=== PATIENT | female | born 1955 | race Two or more races ===

== ENCOUNTER 2018-04-16 02:50 | Emergency (ER) | payer OTHER ==
--- OUTSIDE RECORDS SUMMARY | 2018-04-16 02:54 | XMS REPORT | Continuity of Care Document ---
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 [address] [place] [address] Effective: Policy Number: Medicaid/Computer [employer] Seciliabet Nitesh 2016 [id number] Expires: 2016 Group Name: 1 1 [address] PayID: [id number] [place] [address] Policy Number: [id number] [facility] Seciliabet Nitesh PayID: [id number] [address] [place] [address] Advance Directives Description No Information Available Problems Description No Information Family History Date Family Member(s) Problem(s) Comments General Diabetes Social History Type Date Description Comments Sex Unknown Marital Status Earlier this year Lives With Sons Occupation Disabled Tobacco Use Start: Unknown Never Smoked Cigarettes ETOH Use Denies alcohol use Recreational Drug Use Never Used Drugs Tobacco Use Start: Unknown Patient has never smoked Smoking Status Reviewed: 09/25/17 Patient has never smoked Allergies, Adverse Reactions, Alerts Date Description Reaction Status Severity Comments 01/26/2017 Penicillin Active 11/03/2016 NKDA Inactive Medications Medication Date Status Form Strength Qnty SIG Indications Ordering Provider Robert 04/06/ Active Misc 120un use 2 times a Serge Lancets 2018 its day as Franky instructed , for blood glucose testing Freestyle Lite 04/06/ Active Strips 200un use to test Serge Test 2018 its blood sugar Franky twice daily , dx code e11.9 Alcohol Swabs 04/06/ Active Pads 70% 100un use for Serge 2018 its fingersticks MD Franky Vitamin B12 12/28/ Active Tablets 3000mcg 90tab 1 tab Serge 2018 Sub s sublingually Heetderks per day , Glucometer 08/04/ Active For testing E11.65 Serge 2018 blood sugar. Franky Alvarado MD controlled diabetes. Please dispense glucometer kit covered by insurance. Ramipril 05/26/ Active Capsules 10mg 30cap take 1 Z00.8 Serge 2017 s capsule by Heeterlin mouth once , daily Zyrtec Allergy 11/03/ Active Tablets 10mg 30tab 1 by mouth R05 Serge 2016 s every day MD Franky Calcium/D 04/14/ Active 60uni Take 1 Tablet Serge 500MG Tab 2016 ts By Mouth Mariuszetderchantelle Twice Daily , Tylenol 04/07/ Active Tablets 325mg 60tab 2 tab by Serge 2015 s mouth three Heetderks times a day , as needed for headache Oyster Shell 03/03/ Active Tablets 500-400mg 60tab 1 tab by Serge Calcium + D3 2016 -Unit s mouth twice a Heetderks day , Pravastatin 03/03/ Active Tablets 20mg 90tab Take One Serge Sodium 2015 s Tablet By Heetderchantelle Mouth AT , Bedtime Pantoprazole 03/03/ Active Tablets DR 40mg 30tab Take 1 Tablet Serge Sodium 2015 s By Mouth Once Heetderchantelle Daily , Torsemide / Active Tablets 10mg 30tab 1 by mouth Serge 0000 s every day as Franky needed , Metformin HCL / Active Tablets 1000mg 180ta take one Serge 0000 bs tablet by Heeterlin mouth twice , daily Ramipril 05/25/ Hx Capsules 10mg 60cap irvin 2 Z00.8 Serge 2018 - s capsules by Franky 01/16/ mouth daily , 2018 for high blood pressure Ramipril 04/07/ Hx Capsules 10mg 60cap Take Two Z00.8 Serge 2016 - s Capsules By Franky 05/25/ Mouth Once , 2017 Daily Ramipril 03/03/ Hx Capsules 10mg 30cap 1 tab by Z00.8 Serge 2016 - s mouth daily Franky 04/07/ , 2015 Tessalon 03/03/ Hx Capsules 100mg 45cap take 1 Serge Perles 2016 - s capsule by Franky 12/28/ mouth 3 times , 2017 per day as needed for cough Oyster Shell / Hx Unknown Calcium 500+D 0000 - 2015 Medications Administered in Office Medication Date Status Form Strength Qnty SIG Indications Ordering Provider Vitamin B-12 Administered Injection Lab and Injection-To 018 [facility] Vitamin B-12 Administered Injection Lab and Injection-To 018 Office [facility] Vitamin B-12 Administered Injection Lab and Injection-To 018 Office [facility] Vitamin B-12 Administered Injection Serge Injection-To erin Ray MD Vitamin B-12 Administered Injection Lab and Injection-To 017 [facility] Vitamin B-12 Administered Injection Serge Injection-To erin Rivas MD Vitamin B-12 Administered Injection Serge Injection-To erin Rivas MD Immunizations CPT Code Status Date Vaccine Lot # [id number] Given 04/05/2018 Influenza Virus Vaccine, Quadrivalent, 3 Yr > [id number] Quad, Preserv Free 57214 Given 01/26/2017 Influenza Virus Vaccine, Quadrivalent, 3 Yr > [id number] Quad, Preserv Free 04820 Given 04/07/2016 Tdap (Adacel) [id number] 31280 Given 03/03/2016 Influenza Virus Vaccine, Quadrivalent, 3 Yr > [id number] Quad, Preserv Free 28640 Given 02/14/2015 Influenza Virus Vaccine, Quadrivalent, 3 Yr > Quad, Preserv Free 33432 Given 01/12/2008 Pneumovax 23 (PPSV23) 65+ years or high risk 2 to 64 year old 44854 Given 01/12/2008 DT (Pediatric) Vital Signs Date Vital Result Comment 04/05/2018 2:36pm Weight 166.00 lb Weight 75.298 kg BP Systolic 124 mmHg BP Diastolic 80 mmHg Heart Rate 76 /min Body Temperature 97.9 F Respiratory Rate 16 /min Height 63.5 inches 5'3.50" BMI (Body Mass Index) 28.9 kg/m2 O2 % BldC Oximetry 96 % 12/28/2017 4:21pm Weight 171.00 lb Weight 77.566 kg BP Systolic 138 mmHg BP Diastolic 85 mmHg Heart Rate 64 /min Body Temperature 98.7 F Respiratory Rate 20 /min 09/25/2017 1:11pm Weight 178.00 lb Weight 80.741 kg BP Systolic 126 mmHg BP Diastolic 78 mmHg Heart Rate 74 /min Body Temperature 97.9 F Respiratory Rate 18 /min O2 % BldC Oximetry 97 % 08/04/2017 11:43am Weight 179.00 lb Weight 81.194 kg BP Systolic 118 mmHg BP Diastolic 80 mmHg Heart Rate 74 /min Body Temperature 97.9 F Respiratory Rate 14 /min O2 % BldC Oximetry 98 % 01/26/2017 3:03pm Weight 175.00 lb Weight 79.380 kg BP Systolic 112 mmHg BP Diastolic 78 mmHg Heart Rate 76 /min Body Temperature 98.6 F Respiratory Rate 16 /min 11/03/2016 2:07pm Weight 172.00 lb Weight 78.019 kg BP Systolic 122 mmHg BP Diastolic 72 mmHg Heart Rate 64 /min Body Temperature 97.5 F Respiratory Rate 16 /min 04/07/2016 9:48am Weight 163.00 lb Weight 73.937 kg BP Systolic 140 mmHg BP Diastolic 68 mmHg Heart Rate 76 /min Height 63.5 inches 5'3.50" BMI (Body Mass Index) 28.4 kg/m2 03/03/2016 3:19pm Weight 161.00 lb Weight 73.030 kg BP Systolic 106 mmHg BP Diastolic 64 mmHg Heart Rate 72 /min Body Temperature 97.9 F Respiratory Rate 20 /min Height 63 inches 5'3" BMI (Body Mass Index) 28.5 kg/m2 Results Test Date Facility Test Result H/L Range Note Laboratory test 04/05/2018 [facility] Hemoglobin A1c 5.5 % 4.0-5.6 1 finding [phone] (Glyco HGB) CBC Auto Diff 04/05/2018 [facility] White Blood 6.8 10^3/uL 3.5-10.8 [phone] Count Red Blood Count 4.38 10^6/uL 4.00-5.40 Hemoglobin 12.9 g/dL 12.0-16.0 Hematocrit 39 % 35-47 Mean Corpuscular Volume 89 fL 80-97 Mean Corpuscular Hemoglobin 29 pg 27-31 Mean Corpuscular HGB Conc 33 g/dL 31-36 Red Cell Distribution Width 15 % 10.5-15 Platelet Count 122 10^3/uL Low 150-450 Mean Platelet Volume 12.0 fL High 7.4-10.4 Abs Neutrophils 3.9 10^3/uL 1.5-7.7 Abs Lymphocytes 2.3 10^3/uL 1.0-4.8 Abs Monocytes 0.5 10^3/uL 0-0.8 Abs Eosinophils 0.1 10^3/uL 0-0.6 Abs Basophils 0 10^3/uL 0-0.2 Abs Nucleated RBC 0 10^3/uL Granulocyte % 56.9 % Lymphocyte % 33.5 % Monocyte % 7.3 % Eosinophil % 1.6 % Basophil % 0.7 % Nucleated Red Blood Cells % 0.1 Comp Metabolic Panel 04/05/2018 [facility] Sodium 144 mmol/L 135-145 [phone] Potassium 4.3 mmol/L 3.5-5.0 Chloride 109 mmol/L 101-111 Co2 Carbon Dioxide 29 mmol/L 22-32 Anion Gap 6 mmol/L 2-11 Glucose 86 mg/dL 70-100 Blood Urea Nitrogen 9 mg/dL 6-24 Creatinine 0.65 mg/dL 0.51-0.95 BUN/Creatinine Ratio 13.8 8-20 Calcium 9.9 mg/dL 8.6-10.3 Total Protein 6.8 g/dL 6.4-8.9 Albumin 4.1 g/dL 3.2-5.2 Globulin 2.7 g/dL 2-4 Albumin/Globulin Ratio 1.5 1-3 Total Bilirubin 0.40 mg/dL 0.2-1.0 Alkaline Phosphatase 82 U/L 34-104 Alt 41 U/L 7-52 Ast 38 U/L 13-39 Egfr Non- 92.4 >60 Egfr 111.8 >60 2 Laboratory test 12/18/2017 [facility] Vitamin B12 412 pg/mL 180-914 3 finding [phone] Liver Function 09/25/2017 [facility] Direct 0.10 mg/ dL 0.03-0.18 Panel [phone] Bilirubin Indirect Bilirubin 0.4 mg/dL 0.3-1.0 Laboratory test 09/25/2017 [facility] Vitamin B12 182 pg/mL 180-914 4 finding [phone] Vitamin D Total 25(Oh) 42.2 ng/mL 20-50 5 TSH (Thyroid Stim Horm) 4.54 mcIU/mL 0.34-5.60 6 Free T4 (Free Thyroxine) 0.87 ng/dL 0.61-1.12 7 T3 Total 1.35 ng/mL 0.87-1.78 8 Thyroperoxidase AB 1.48 IU/mL <9 9 Laboratory test 09/25/2017 [facility] Cytology SEE RESULT 10 finding [phone] BELOW Comp Metabolic 09/25/2017 [facility] Sodium 144 mmol/ L 139-145 Panel [phone] Potassium 4.0 mmol/L 3.5-5.0 Chloride 105 mmol/L 101-111 Co2 Carbon Dioxide 28 mmol/L 22-32 Anion Gap 11 mmol/L 2-11 Glucose 88 mg/dL 70-100 Blood Urea Nitrogen 8 mg/dL 6-24 Creatinine 0.70 mg/dL 0.51-0.95 BUN/Creatinine Ratio 11.4 8-20 Calcium 9.5 mg/dL 8.6-10.3 Total Protein 6.8 g/dL 6.4-8.9 Albumin 3.9 g/dL 3.2-5.2 Globulin 2.9 g/dL 2-4 Albumin/Globulin Ratio 1.3 1-3 Total Bilirubin 0.50 mg/dL 0.2-1.0 Alkaline Phosphatase 96 U/L 34-104 Alt 74 U/L High 7-52 Ast 64 U/L High 13-39 Egfr Non- 85.1 >60 Egfr 109.4 >60 11 CBC Auto Diff 09/25/2017 [facility] White Blood 6.2 10^3/uL 3.5-10.8 [phone] Count Red Blood Count 4.42 10^6/uL 4.0-5.4 Hemoglobin 12.8 g/dL 12.0-16.0 Hematocrit 39 % 35-47 Mean Corpuscular Volume 88 fL 80-97 Mean Corpuscular Hemoglobin 29 pg 27-31 Mean Corpuscular HGB Conc 33 g/dL 31-36 Red Cell Distribution Width 16 % High 10.5-15 Platelet Count 119 10^3/uL Low 150-450 Mean Platelet Volume 12.1 um3 High 7.4-10.4 Abs Neutrophils 3.6 10^3/uL 1.5-7.7 Abs Lymphocytes 2.0 10^3/uL 1.0-4.8 Abs Monocytes 0.4 10^3/uL 0-0.8 Abs Eosinophils 0.2 10^3/uL 0-0.6 Abs Basophils 0 10^3/uL 0-0.2 Abs Nucleated RBC 0 10^3/uL Granulocyte % 58.1 % 38-83 Lymphocyte % 31.2 % 25-47 Monocyte % 7.1 % High 0-7 Eosinophil % 2.8 % 0-6 Basophil % 0.8 % 0-2 Nucleated Red Blood Cells % 0 Urine Microalbumin 08/04/2017 [facility] Ur Microalbumin 20.4 mg/L Random [phone] (mg/L) Urine Creatinine 102.08 mg/dL Urine Microalbumin/Creatinine 19.9 ug/mg <31 CBC Auto Diff 08/04/2017 [facility] White Blood 6.3 10^3/uL 3.5-10.8 [phone] Count Red Blood Count 4.46 10^6/uL 4.0-5.4 Hemoglobin 12.9 g/dL 12.0-16.0 Hematocrit 40 % 35-47 Mean Corpuscular Volume 90 fL 80-97 Mean Corpuscular Hemoglobin 29 pg 27-31 Mean Corpuscular HGB Conc 32 g/dL 31-36 Red Cell Distribution Width 15 % 10.5-15 Platelet Count 107 10^3/uL Low 150-450 Mean Platelet Volume 12.2 um3 High 7.4-10.4 Abs Neutrophils 3.4 10^3/uL 1.5-7.7 Abs Lymphocytes 2.2 10^3/uL 1.0-4.8 Abs Monocytes 0.5 10^3/uL 0-0.8 Abs Eosinophils 0.1 10^3/uL 0-0.6 Abs Basophils 0 10^3/uL 0-0.2 Abs Nucleated RBC 0 10^3/uL Granulocyte % 54.4 % 38-83 Lymphocyte % 35.3 % 25-47 Monocyte % 7.6 % High 0-7 Eosinophil % 2.0 % 0-6 Basophil % 0.7 % 0-2 Nucleated Red Blood Cells % 0.1 Comp Metabolic Panel 08/04/2017 [facility] Sodium 142 mmol/L 139-145 [phone] Potassium 4.0 mmol/L 3.5-5.0 Chloride 103 mmol/L 101-111 Co2 Carbon Dioxide 28 mmol/L 22-32 Anion Gap 11 mmol/L 2-11 Glucose 78 mg/dL 70-100 Blood Urea Nitrogen 12 mg/dL 6-24 Creatinine 0.69 mg/dL 0.51-0.95 BUN/Creatinine Ratio 17.4 8-20 Calcium 9.6 mg/dL 8.6-10.3 Total Protein 6.8 g/dL 6.4-8.9 Albumin 3.9 g/dL 3.2-5.2 Globulin 2.9 g/dL 2-4 Albumin/Globulin Ratio 1.3 1-3 Total Bilirubin 0.40 mg/dL 0.2-1.0 Alkaline Phosphatase 92 U/L 34-104 Alt 75 U/L High 7-52 Ast 92 U/L High 13-39 Egfr Non- 86.5 >60 Egfr 111.2 >60 12 Laboratory test 08/04/2017 [facility] Hemoglobin A1c 5.8 % High 4.0-5.6 13 finding [phone] (Glyco HGB) Lipid Profile 08/04/2017 [facility] Triglycerides 133 14 (Trig/Chol/HDL) [phone] mg/dL Cholesterol 142 mg/dL 15 HDL Cholesterol 36.6 mg/dL 16 LDL Cholesterol 79 mg/dL 17 Laboratory test 11/03/2016 [facility] Hemoglobin A1c 5.8 % Less than 18 finding [phone] (Glyco HGB) 6.0 Hepatitis C Antibody Nonreactive Nonreactive 19 Lipid Profile 11/03/2016 [facility] Triglycerides 143 mg/dL 20 (Trig/Chol/HDL) [phone] Cholesterol 160 mg/dL 21 HDL Cholesterol 38.4 mg/dL 22 LDL Cholesterol 93 mg/dL 23 Urine Microalbumin 04/07/2016 [facility] Urine Creatinine 80.43 mg/dL 24 Random [phone] Ur Microalbumin (mg/L) 15.8 mg/L Urine Microalbumin/Creatinine 19.6 ug/mg <31 Laboratory test 03/03/2016 [facility] Hemoglobin A1c 5.7 % Less than 25 finding [phone] (Glyco HGB) 6.0 CBC Auto Diff 03/03/2016 [facility] White Blood 8.6 3.5-10.8 [phone] Count 10^3/uL Red Blood Count 5.16 10^6/uL 4.0-5.4 Hemoglobin 15.2 g/dL 12.0-16.0 Hematocrit 47 % 35-47 Mean Corpuscular Volume 91 fL 80-97 Mean Corpuscular Hemoglobin 30 pg 27-31 Mean Corpuscular HGB Conc 32 g/dL 31-36 Red Cell Distribution Width 14 % 10.5-15 Platelet Count 140 10^3/uL Low 150-450 Mean Platelet Volume 12 um3 High 7.4-10.4 Abs Neutrophils 5.5 10^3/uL 1.5-7.7 Abs Lymphocytes 2.4 10^3/uL 1.0-4.8 Abs Monocytes 0.6 10^3/uL 0-0.8 Abs Eosinophils 0.1 10^3/uL 0-0.6 Abs Basophils 0 10^3/uL 0-0.2 Abs Nucleated RBC 0 10^3/uL Granulocyte % 64.1 % 38-83 Lymphocyte % 28.0 % 25-47 Monocyte % 6.4 % 1-9 Eosinophil % 0.9 % 0-6 Basophil % 0.6 % 0-2 Nucleated Red Blood Cells % 0 Comp Metabolic Panel 03/03/2016 [facility] Sodium 141 mmol/L 133-145 [phone] Potassium 5.0 mmol/L 3.5-5.0 Chloride 103 mmol/L 101-111 Co2 Carbon Dioxide 30 mmol/L 22-32 Anion Gap 8 mmol/L 2-11 Glucose 90 mg/dL 70-100 Blood Urea Nitrogen 15 mg/dL 6-24 Creatinine 0.88 mg/dL 0.51-0.95 BUN/Creatinine Ratio 17.0 8-20 Calcium 10.0 mg/dL 8.6-10.3 Total Protein 7.4 g/dL 6.4-8.9 Albumin 4.1 g/dL 3.2-5.2 Globulin 3.3 g/dL 2-4 Albumin/Globulin Ratio 1.2 1-3 Total Bilirubin 0.60 mg/dL 0.2-1.0 Alkaline Phosphatase 83 U/L 34-104 Alt 31 U/L 7-52 Ast 24 U/L 13-39 Egfr Non- 65.5 >60 Egfr 84.3 >60 26 Lipid Profile 03/03/2016 [facility] Triglycerides 117 mg/dL 27 (Trig/Chol/HDL) [phone] Cholesterol 128 mg/dL 28 HDL Cholesterol 30.1 mg/dL 29 LDL Cholesterol 75 mg/dL 30 Laboratory test 03/03/2016 [facility] Vitamin B12 > 1450 High 180-914 31 finding [phone] pg/mL 1 Therapeutic target for the treatment of diabetes mellitus patients is <7% HBA1C, and in selective patients <6.0%. Please refer to [place] [employer] diabetic care guidelines for further information. 2 Because ethnic data is not always readily available, this report includes an eGFR for both -Americans and non- Americans. The National Kidney Disease Education Program (NKDEP) does not endorse the use of the MDRD equation for patients that are not between the ages of 18 and 70, are , have extremes of body size, muscle mass, or nutritional status, or are non- or non-. According to the National Kidney Foundation, irrespective of diagnosis, the stage of the disease is based on the level of kidney function: Stage Description GFR(mL/min/1.73 m(2)) 1 Kidney damage with normal or decreased GFR 90 2 Kidney damage with mild decrease in GFR 60-89 3 Moderate decrease in GFR 30-59 4 Severe decrease in GFR 15-29 5 Kidney failure <15 (or dialysis) 3 Normal Range 180 to 914 Indeterminate Range 145 to 180 Deficient Range <145 4 Normal Range 180 to 914 Indeterminate Range 145 to 180 Deficient Range <145 5 [id number] 9 [id number] 10 SEE RESULT BELOW Name: NITESHMIRJANE : [address]: Marilyn Chávez NP Acct: [id number] Unit: [id number] AGE: 61 Location: [facility] Re09/25/17 SEX: F Status: REG REF SPEC: [id number] CLARENCE: 09/25/[address]: Marilyn Chávez NP REQ: [id number] RECD: 09/25/17 STATUS: SOUT _ ORDERED: TP IMAGE ANALYS, HPV/Thin Prep, HPV 16/18 GENE Negative for Intraepithelial lesion or Malignancy A. Vaginal Specimen Adequacy: Satisfactory of evaluation Patient Information: HPV: High risk HPV RNA testing regardless of pap results. HPV 16/18 Genotype Reflex Actual Specimen Date: 09/25/17 Other Pertinent History: No History Given Date Time Test Result Flag (u) Normal Range 09/25/17 1617 @ HPV RNA RFLX GE Negative Negative @ @ The high-risk HPV types detected by the assay include: 16, @ 18, 31, 33, 35, 39, 45, 51, 52, 56, 58, 59, 66, and 68. Signed by and Reported on: ELMER Dominguez(ASCP) [id number] This Pap test was evaluated with the assistance of the [employer] Test Imaging System. Due to cytologic findings at the cook helper microscope, comprehensive manual rescreening by a Nursing Admin may be required. The Pap Smear is a screening test designed to aid in the detection of premalignant and malignant conditions of the uterine cervix. It is not a diagnostic procedure and should not be used as the sole means of detecting cervical cancer. Both false- positive and false- negative reports do occur. Depending on your risk status, a Pap smear should be obtained and evaluated every 1-3 years. END OF REPORT DEPARTMENT OF PATHOLOGY, [address] [place] [address] Kayode Fernando M.D. Director [facility] # [id number] 11 Because ethnic data is not always readily available, this report includes an eGFR for both -Americans and non- Americans. The National Kidney Disease Education Program (NKDEP) does not endorse the use of the MDRD equation for patients that are not between the ages of 18 and 70, are , have extremes of body size, muscle mass, or nutritional status, or are non- or non-. According to the National Kidney Foundation, irrespective of diagnosis, the stage of the disease is based on the level of kidney function: Stage Description GFR(mL/min/1.73 m(2)) 1 Kidney damage with normal or decreased GFR 90 2 Kidney damage with mild decrease in GFR 60-89 3 Moderate decrease in GFR 30-59 4 Severe decrease in GFR 15-29 5 Kidney failure <15 (or dialysis) 12 Because ethnic data is not always readily available, this report includes an eGFR for both -Americans and non- Americans. The National Kidney Disease Education Program (NKDEP) does not endorse the use of the MDRD equation for patients that are not between the ages of 18 and 70, are , have extremes of body size, muscle mass, or nutritional status, or are non- or non-. According to the National Kidney Foundation, irrespective of diagnosis, the stage of the disease is based on the level of kidney function: Stage Description GFR(mL/min/1.73 m(2)) 1 Kidney damage with normal or decreased GFR 90 2 Kidney damage with mild decrease in GFR 60-89 3 Moderate decrease in GFR 30-59 4 Severe decrease in GFR 15-29 5 Kidney failure <15 (or dialysis) 13 Therapeutic target for the treatment of diabetes mellitus patients is <7% HBA1C, and in selective patients <6.0%. Please refer to [place] [employer] Association diabetic care guidelines for further information. 14 Desirable: <150 Borderline High: 150-199 High: 200-499 Very High: >500 15 Desirable: <200 Borderline High: 200-239 High: >239 16 Low: <40 Desirable: 40-60 High: >60 17 Desirable: <100 Near Optimal: 100-129 Borderline High: 130-159 High: 160-189 Very High: >189 18 Therapeutic target for the treatment of diabetes Mellitus patients is <7% HBA1C, and in selective patients <6.0%.Please refer to [place] [employer] Diabetic care guidelines for further information. 19 [id number] 20 Desirable <150 Borderline high 150-199 High 200-499 Very High >500 21 Desirable <200 Borderline high 200-239 High >239 22 Low <40 Desirable: 40-60 High: >60 23 Desirable: <100 mg/dL Near Optimal: 100-129 mg/dL Borderline High: 130-159 mg/dL High: 160-189 mg/dL Very High: >189 mg/dL 24 [id number] 25 Therapeutic target for the treatment of diabetes Mellitus patients is <7% HBA1C, and in selective patients <6.0%.Please refer to [place] [employer] Diabetic care guidelines for further information. 26 Because ethnic data is not always readily available, this report includes an eGFR for both -Americans and non- Americans. The National Kidney Disease Education Program (NKDEP) does not endorse the use of the MDRD equation for patients that are not between the ages of 18 and 70, are , have extremes of body size, muscle mass, or nutritional status, or are non- or non-. According to the National Kidney Foundation, irrespective of diagnosis, the stage of the disease is based on the level of kidney function: Stage Description GFR(mL/min/1.73 m(2)) 1 Kidney damage with normal or decreased GFR 90 2 Kidney damage with mild decrease in GFR 60-89 3 Moderate decrease in GFR 30-59 4 Severe decrease in GFR 15-29 5 Kidney failure <15 (or dialysis) 27 Desirable <150 Borderline high 150-199 High 200-499 Very High >500 28 Desirable <200 Borderline high 200-239 High >239 29 Low <40 Desirable: 40-60 High: >60 30 Desirable: <100 mg/dL Near Optimal: 100-129 mg/dL Borderline High: 130-159 mg/dL High: 160-189 mg/dL Very High: >189 mg/dL 31 Normal Range 180 to 914 Indeterminate Range 145 to 180 Deficient Range <145 Procedures Date Code Description Status 12/18/2017 02140 Therapeutic,Prophylactic,Or Diagnostic Inj,SC/Im Completed Specify Drug 12/11/2017 45391 Therapeutic,Prophylactic,Or Diagnostic Inj,SC/Im Completed Specify Drug 12/04/2017 06180 Therapeutic,Prophylactic,Or Diagnostic Inj,SC/Im Completed Specify Drug 09/25/2017 60897 EKG, at Least 12 Leads w/Interpretation and Report Completed 08/09/2017 [id number] Mammogram Completed 11/03/2016 12257 Therapeutic,Prophylactic,Or Diagnostic Inj,SC/Im Completed Specify Drug 05/19/2016 52979 Therapeutic,Prophylactic,Or Diagnostic Inj,SC/Im Completed Specify Drug 04/07/2016 08719 Therapeutic,Prophylactic,Or Diagnostic Inj,SC/Im Completed Specify Drug 03/03/2016 79326 Therapeutic,Prophylactic,Or Diagnostic Inj,SC/Im Completed Specify Drug 10/23/2014 [id number] Colonoscopy Completed Encounters Type Date Location Provider Dx Diagnosis Office Visit 12/28/2017 Main Office Serge Wilkins, E11.65 Type 2 diabetes 4:00p MD mellitus with hyperglycemia Office Visit 09/25/2017 Main Office Marilyn Chávez Z00.00 Encntr for general 1:30p SENIOR BILLING CONSULTANT adult medical exam w/o abnormal findings R53.83 Other fatigue Z12.4 Encounter for screening for malignant neoplasm of cervix E11.65 Type 2 diabetes mellitus with hyperglycemia I10 Essential (primary) hypertension Office Visit 08/04/2017 11:45a Main Office Serge Wilkins M65.311 Trigger thumb, right thumb M65.4 Radial styloid tenosynovitis [de Quervain] E11.65 Type 2 diabetes mellitus with hyperglycemia Office Visit 01/26/2017 3:00p Main Office Serge Wilkins M65.311 Trigger thumb, right thumb M65.4 Radial styloid tenosynovitis [de Quervain] Z23 Encounter for immunization Office Visit 11/03/2016 2:00p Main Office Serge Wilkins E11.65 Type 2 diabetes MD mellitus with hyperglycemia Z11.59 Encounter for screening for other viral diseases R05 Cough R53.83 Other fatigue E53.8 Deficiency of other specified B group vitamins Office Visit 04/07/2016 9:00a Main Office Serge Wilkins Z00.8 Encounter for MD other general examination Z23 Encounter for immunization E53.8 Deficiency of other specified B group vitamins Office Visit 03/03/2016 3:30p Main Office Serge Wilkins E11.65 Type 2 diabetes MD mellitus with hyperglycemia E53.8 Deficiency of other specified B group vitamins E78.00 Pure hypercholesterolemia, unspecified I10 Essential (primary) hypertension R60.9 Edema, unspecified Z23 Encounter for immunization Plan of Treatment Future Appointment(s):09/27/2018 3:30 pm - Serge Wilkins MD at [facility]2004/05/2018 - Serge Wilkins [id number] Type 2 diabetes mellitus with hyperglycemiaComments:Primary measures proven to improve life expectancy:Smoking - never smokerBlood pressure- WNL on ramiprilMetformin- On metforminStatin- Takes a [id number]- Well controlled, below 6. Checking annuallySecondary measures :-Diabetic foot exam annually 08/04/17-Diabetic retinopathy screen annually Needs this, advised.Saw an eye doc this year.-Microalbumin yearly Tertiary measures:-HBV vaccine-Pneumovax -Nutritional ufjwwxatlc-BPA-2- Alcohol use screening-exercise program
[2018-04-16] MEDS ORDERED: Ondansetron INJ* 2 MG/ML VIAL IV ONE (03:26)
[2018-04-16] MEDS ORDERED: Meclizine TAB* 12.5 MG PO ONE (03:26)
[2018-04-16] MEDS ORDERED: NS 0.9% 1000 ML* 1,000 ML IV ONE (03:26)
--- NOTE | 2018-04-16 03:28 | ED ---
Dizziness - HPI Summary HPI Summary: This patient is a 62 year old F brought in by ambulance to [facility] accompanied by son status post fall. The patient rates the pain 0/10 in severity. Symptoms aggravated by nothing. Symptoms alleviated by nothing. Patient reports vomiting and dizziness (room spinning). - History Of Current Complaint Chief Complaint: EDDizziness Stated Complaint: DIZZINESS Time Seen by Provider: 04/16/18 02:54 Hx Obtained From: Patient Onset/Duration: Still Present Timing: Constant Severity Initially: Mild Severity Currently: Mild Character: Room Spinning Aggravating Factor(s): Nothing Alleviating Factor(s): Nothing Associated Signs And Symptoms: Positive: Vomiting - Allergies/Home Medications Allergies/Adverse Reactions: Allergies Allergy/AdvReac Type Severity Reaction Status Date / Time Penicillins Allergy Unknown Verified 02/26/18 14:24 Reaction Details Home Medications: Home Medications Acetaminophen [Tylenol] 325 mg PO Q4HR PRN 04/16/18 [History Confirmed 04/16/18] Cetirizine* [ZyrTEC 10 MG TAB*] 10 mg PO DAILY 04/16/18 [History Confirmed 04/16] Pravastatin Sodium 20 mg PO DAILY 04/16/18 [History Confirmed 04/16/18] PMH/Surg Hx/FS Hx/Imm Hx Previously Healthy: No Endocrine/Hematology History: Reports: Hx Diabetes Cardiovascular History: Reports: Hx Hypertension - Cancer History Hx Chemotherapy: No Hx Radiation Therapy: No Infectious Disease History: No Infectious Disease History: Denies: Traveled Outside the [place] in Last 30 Days - Family History Known Family History: Positive: Other - Negative breast CA - Social History Occupation: Disabled Lives: With Family Alcohol Use: None Hx Substance Use: No Substance Use Type: Reports: None Hx Tobacco Use: No Smoking Status (MU): Never Smoked Tobacco Review of Systems Positive: Vomiting Neurological: Other - Positive dizziness All Other Systems Reviewed And Are Negative: Yes Physical Exam - Summary Physical Exam Summary: VITAL SIGNS: Reviewed. GENERAL: Patient is a well-developed and nourished female who is lying comfortable in the stretcher. Patient is not in any acute respiratory distress. HEAD AND FACE: No signs of trauma. No ecchymosis, hematomas or skull depressions. No sinus tenderness. EYES: PERRLA, EOMI x 2, No injected conjunctiva, no nystagmus. EARS: Hearing grossly intact. Ear canals and tympanic membranes are within normal limits. MOUTH: Oropharynx within normal limits. NECK: Supple, trachea is midline, no adenopathy, no JVD, no carotid bruit, no c- spine tenderness, neck with full ROM. CHEST: Symmetric, no tenderness at palpation LUNGS: Clear to auscultation bilaterally. No wheezing or crackles. CVS: Regular rate and rhythm, S1 and S2 present, no murmurs or gallops appreciated. ABDOMEN: Soft, non-tender. No signs of distention. No rebound no guarding, and no masses palpated. Bowel sounds are normal. EXTREMITIES: FROM in all major joints, no edema, no cyanosis or clubbing. NEURO: Alert and oriented x 3. No acute neurological deficits. Speech is normal and follows commands. pt refused to walk; however, her exam in the stretcher was intact. Finger to nose coordination ramos is intact. Left facial droop, which is old. SKIN: Dry and warm Triage Information Reviewed: Yes Vital Signs On Initial Exam: Initial Vitals Pulse BP Pulse Ox 60 145/81 93 04/16/18 03:01 04/16/18 03:01 04/16/18 03:01 Vital Signs Reviewed: Yes - Hendricks Coma Scale Best Eye Response: 4 - Spontaneous Best Motor Response: 6 - Obeys Commands Best Verbal Response: 5 - Oriented Coma Scale Total: 15 Diagnostics - Vital Signs Vital Signs Temp Pulse Resp BP Pulse Ox 04/16/18 03:09 97.5 F 56 16 145/81 95 04/16/18 03:01 60 145/81 93 - Laboratory Result Diagrams: 04/16/18 03:41 04/16/18 03:41 Lab Statement: Any lab studies that have been ordered have been reviewed, and results considered in the medical decision making process. - Radiology Chest XR Radiology Interpretation Completed By: ED Physician Summary of Radiographic Findings: CXR reveals, per ED physician, no acute process. - CT Head CTA CT Interpretation Completed By: Radiologist Summary of CT Findings: Head CTA reveals, per radiologist, 1. No acute findings. No evidence of hemodynamically significant stenosis. 2. Corrugated appearance to a long segment of the bilateral mid and distal internal carotid arteries, suggestive of fibromuscular dysplasia. Differential includes vasculitis. ED physician has reviewed this radiology report. Brain CT CT Interpretation Completed By: Radiologist Summary of CT Findings: Brain CT reveals, per radiologist, no acute intracranial abnormality. ED physician has reviewed this radiology report. - EKG 0310 Cardiac Rate: NL EKG Rhythm: Sinus Rhythm - [address] Segment: Non-Specific Summary of EKG Findings: An EKG taken at 0310 reveals nml sinus rhythm at 58 BPM with nonspecific T wave changes in the inferior leads. Re-Evaluation - Re-Evaluation First Eval Re-Evaluation Time: 05:35 Change: Improved Comment: Pt reports she feels better. She is able to sit up in the stretcher with mild dizziness Dizzy Course/Dx - Course Course Of Treatment: This patient is a 62 year old F brought in by ambulance to [facility] accompanied by son status post fall. The patient rates the pain 0/10 in severity. Physical Exam Findings: pt refused to walk; however, her neuro exam in the stretcher was intact. Finger to nose coordination ramos is intact. No nystagmus. Left facial droop, which is old. An EKG taken at 0310 reveals nml sinus rhythm at 58 BPM with nonspecific T wave changes in the inferior leads. CXR reveals, per ED physician, no acute process. Head CTA reveals, per radiologist, 1. No acute findings. No evidence of hemodynamically significant stenosis. 2. Corrugated appearance to a long segment of the bilateral mid and distal internal carotid arteries, suggestive of fibromuscular dysplasia. Differential includes vasculitis. Brain CT reveals, per radiologist, no acute intracranial abnormality. Bloodwork and UA obtained. In the ED course the patient was given contrast, fluids, Zofran, antivert, and potassium. Pt most likely has benign positional vertigo. Patient will be discharged with prescription for Meclizine and follow up from PCP. The patient is agreeable with this plan. - Diagnoses Provider Diagnoses: Benign positional vertigo Discharge - Sign-Out/Discharge Documenting (check all that apply): Patient Departure - Discharge home - Discharge Plan Condition: Stable Disposition: HOME Prescriptions: Meclizine HCl [Motion Sickness Relief] 25 mg PO TID PRN #20 tablet PRN Reason: Dizziness Patient Education Materials: Vertigo (ED) Referrals: Serge Wilkins MD [Primary Care Provider] - 2 Days Additional Instructions: RETURN TO THE EMERGENCY DEPARTMENT FOR NEW OR WORSENING SYMPTOMS - Attestation Statements Document Initiated by Scribe: Yes Documenting Scribe: Angelina Mendez Provider For Whom Scribe is Documenting (Include Credential): Dr. Chencho Antonio MD Scribe Attestation: I, Angelina Mendez, scribed for Dr. Chencho Antonio MD on 04/16/18 at 0610. Status of Scribe Document: Ready
[2018-04-16 03:47] LABS: ABS Basophils 0.1 10^3/ul (0-0.2); ABS Eosinophils 0 10^3/ul (0-0.6); ABS Lymphocytes 0.9 10^3/ul (1.0-4.8); ABS Monocytes 0.3 10^3/ul (0-0.8); ABS Nucleated RBC 0 10^3/ul; Eosinophil % 0.3 %; Hematocrit 40 % (35-47); Hemoglobin 13.1 g/dl (12.0-16.0); Lymphocyte % 12.5 %; Mean Corpuscular HGB Conc 33 g/dl (31-36); Mean Corpuscular Hemoglobin 29 pg (27-31); Mean Corpuscular Volume 89 fL (80-97); Mean Platelet Volume 10.8 fL (7.4-10.4); Nucleated Red Blood Cells % 0; Platelet Count 123 10^3/ul (150-450); Red Cell Distribution Width 16 % (10.5-15); White Blood Count 7.3 10^3/ul (3.5-10.8)
[2018-04-16 03:58] LABS: INR 1.03 (0.77-1.02)
[2018-04-16 04:06] LABS: EGFR Non-African American 101.3 (>60)
[2018-04-16 04:07] LABS: Urine Appearance Clear; Urine Blood Negative (Negative); Urine Color Straw; Urine Ketones Trace (Negative); Urine Protein Negative (Negative); Urine Specific Gravity 1.008 (1.010-1.030); Urine Urobilinogen Negative (Negative)
[2018-04-16] MEDS ORDERED: Iodixanol* (CONTRAST) 320 MG/ML 100 ML SDV IV ONE (04:30)
[2018-04-16] MEDS ORDERED: Potassium Chlor TAB* 20 MEQ TAB.ER PO ONE (05:36)
[2018-04-16 06:24] VITALS: BP 107/65
== END 2018-04-16 06:24 | disposition home or self-care (01) ==
LOC: ED 02:50
DX: H81.10 Benign paroxysmal vertigo, unspecified ear (principal); R11.10 Vomiting, unspecified; R00.1 Bradycardia, unspecified; Z88.0 Allergy status to penicillin
CPT/HCPCS: 36415; 70450; 70496; 70498; 71045; 80053; 81003; 82150; 83690; 83735; 85025; 85610; 85730; 86140; 93005; 96360; 99284; A9270-GY; Q9967